=== PATIENT | female | born 1995 | race Caucasian/White ===

== ENCOUNTER 2017-06-21 11:53 | Emergency (ER) | payer BC, OTHER ==
[~2017-06-21] VITALS: Ht 157.5 cm; Wt 65.0 kg
[~2017-06-21 11:53] MED LIST: PREN1TAB62 PO
[2017-06-21 11:54] VITALS: Ht 157.5 cm; Wt 65.0 kg
--- NOTE | 2017-06-21 12:17 | ERD ---
ER Documentation Chief Complaint Date/Time DATE: 06/21/17 TIME: 12:16 Chief Complaint 15weeks with ap x days HPI 21-year-old female, with last menstrual period on March 07, 2017 was A0 presents with left-sided pelvic pain on and off for the past 3 days. She states that she was seen by Dr. Scherer, 2 days ago, who is aware of her pain, she describes as cramping, on the left lower pelvic region. She states that the pain is getting worse and she has not tried anything yet. She has not had any vaginal bleeding. Denies fevers or chills. No dizziness, chest pain or shortness of breath. ROS All systems reviewed and are negative except as per history of present illness. Medications Home Meds Active Scripts Acetaminophen* (Tylophen*) 500 Mg Capsule, 1 CAP PO Q6H Y for PAIN AND OR ELEVATED TEMP, #20 CAP Prov:MARIELOS FRITZ PA-C 06/21/17 Nitrofurantoin Monohyd Macrocr* (Macrobid*) 100 Mg Capsr, 100 MG PO BID for 7 Days, CAP Prov:MARIELOS FRITZ PA-C 06/21/17 Reported Medications Vit-Iron Fumarate-FA ( Vitamin Tablet) 1 Each Tablet, 1 TAB PO DAILY, TAB 09/09/14 Allergies Allergies: Coded Allergies: No Known Allergy (Unverified , 09/09/14) PMhx/Soc Medical and Surgical Hx: pt denies Medical Hx, pt denies Surgical Hx Hx Alcohol Use: No Hx Substance Use: No Hx Tobacco Use: No Smoking Status: Smoker,current status unk Physical Exam Vitals Vital Signs Date Time Temp Pulse Resp B/P Pulse Ox O2 Delivery O2 Flow Rate FiO2 06/21/17 11:54 98.1 76 20 110/55 99 Physical Exam General: Well-developed, well-nourished. The patient appears in no acute distress. HEENT: Head is normocephalic, atraumatic. No scleral icterus. Neck: Supple. Nontender. Lungs: Clear to auscultation. Normal air movement. Heart: Regular rate and rhythm. S1 and S2 are normal. No murmurs, gallops, or rubs. Abdomen: Soft, tender to palpation the left lower pelvic region, nondistended. Bowel sounds are normoactive. Extremities: No clubbing or cyanosis. Normal pulses. Moving extremities x 4. No weakness. Neurologic: Alert and oriented 3. No focal deficits. Skin: Normal turgor. No rash or lesions. Result Diagram: 06/21/17 1228 06/21/17 1228 Results 24 hrs Laboratory Tests Test 06/21/17 12:25 06/21/17 12:28 Urine Color YELLOW Urine Clarity SLIGHTLY CLOUDY Urine pH 6.0 Urine Specific [place] 1.017 Urine Ketones NEGATIVEmg/dL Urine Nitrite NEGATIVEmg/dL Urine Bilirubin NEGATIVEmg/dL Urine Urobilinogen NEGATIVEmg/dL Urine Leukocyte Esterase 1+Joselin/ul Urine Microscopic RBC 0/HPF Urine Microscopic WBC 2/HPF Urine Squamous Epithelial Cells FEW/HPF Urine Bacteria FEW/HPF Urine Hemoglobin NEGATIVEmg/dL Urine Glucose NEGATIVEmg/dL Urine Total Protein NEGATIVEmg/dl White Blood Count 5.310^3/ul Red Blood Count 3.9510^6/ul Hemoglobin 12.7g/dl Hematocrit 34.9% Mean Corpuscular Volume 88.4fl Mean Corpuscular Hemoglobin 32.2pg Mean Corpuscular Hemoglobin Concent 36.4g/dl Red Cell Distribution Width 12.0% Platelet Count 18006^3/UL Mean Platelet Volume 10.8fl Neutrophils % 66.1% Lymphocytes % 24.0% Monocytes % 7.6% Eosinophils % 1.3% Basophils % 0.4% Nucleated Red Blood Cells % 0.0/100WBC Neutrophils # 3.510^3/ul Lymphocytes # 1.310^3/ul Monocytes # 0.410^3/ul Eosinophils # 0.110^3/ul Basophils # 0.010^3/ul Nucleated Red Blood Cells # 0.010^3/ul Sodium Level 140mmol/L Potassium Level 3.9mmol/L Chloride Level 105mmol/L Carbon Dioxide Level 20mmol/L Anion Gap 19 Blood Urea Nitrogen 5mg/dl Creatinine 0.47mg/dl Glucose Level 83mg/dl Calcium Level 9.4mg/dl Total Bilirubin 0.3mg/dl Direct Bilirubin 0.00mg/dl Indirect Bilirubin 0.3mg/dl Aspartate Amino Transf (AST/SGOT) 19IU/L Alanine Aminotransferase (ALT/SGPT) 22IU/L Alkaline Phosphatase 68IU/L Total Protein 7.2g/dl Albumin 4.1g/dl Globulin 3.10g/dl Albumin/Globulin Ratio 1.32 Current Medications Medications (Trade) Dose Ordered Sig/[place] Route PRN Reason Start Time Stop Time Status Last Admin Dose Admin Acetaminophen (Tylenol Tab) 650 mg ONCE ONCE PO 06/21/17 12:30 06/21/17 12:31 DC 06/21/17 12:25 Patient: KEYON GAGNON : 1995 Age: 21 Sex: F MR #: [id number] DOS: 06/21/17 1213 Ordering MD: MARIELOS FRITZ PA-C Location: [facility] Room/Bed: PROCEDURE: US OB. CLINICAL INDICATION: Pelvic pain TECHNIQUE: Multiple sonographic images of the pelvis and gravid uterus were obtained. The images were reviewed on a PACS workstation. COMPARISON: No prior studies are available for comparison. FINDINGS: There is a single viable intrauterine gestation. Cardiac activity is present with 150 beats per minute. There is a variable presentation. The placenta is posterior. There is no evidence for an abruption or placenta previa. Measurements were made in order to determine age. The results are as follows: BPD = 2.7 cm HC = 9.6 cm AC = 8.4 cm FL = 1.4 cm Estimated gestational age of approximately 14 weeks and 4 days based on ultrasound measurements. Clinical age: 15 weeks and 1 day. The estimated date of delivery is 12/16/2017, based on ultrasound measurements. The EFW = 97 g, 6.6%, based on LMP age. The ovaries are normal in size and echogenicity. The right ovary measures 2.8 x 1.3 x 2.1 cm. The left ovary measures 3.7 x 1.8 x 2.6 cm. RPTAT: AA IMPRESSION: Single viable intrauterine gestation of approximately 14 weeks and 4 days based on ultrasound measurements. Normal bilateral ovaries. .Porfirio Castillo MD, Date Time Electronically viewed and signed by .Porifrio Castillo MD, on 06/21/2017 12: 54 .S/ CC: MARIELOS FRITZ PA-C DIAGNOSTIC IMAGING REPORT Patient: KEYON GAGNON : 1995 Age: 21 Sex: F MR #: [id number] DOS: 06/21/17 1311 Ordering MD: MARIELOS FRITZ PA-C Location: [facility] Room/Bed: PROCEDURE: Renal Ultrasound CLINICAL INDICATION: Left-sided flank pain. TECHNIQUE: Evaluation of the kidneys and bladder was performed as well with kay scale and color and Doppler evaluation using a curved array transducer. The images were reviewed on a high-resolution PACS workstation. COMPARISON: No prior studies are available for comparison. FINDINGS: The kidneys are well visualized. No renal masses or calcifications are seen. There is no hydronephrosis. The right kidney measures 9.8 cm in length. The left kidney measures 10.1 cm in length. No perinephric fluid collection is seen. The bladder is within normal limits. IMPRESSION: 1. Unremarkable renal ultrasound. RPTAT: KK .Josue Lezama MD, MD Date Time Electronically viewed and signed by .Josue Lezama MD, MD on 2016 13:37 .B/ CC: MARIELOS FRITZ PA-C Procedures/MDM ED course: Patient was given Tylenol 650 mg for pain. Medical decision making: This is a 21-year-old female is 2 presenting with left-sided pelvic pain, presenting in her second trimester with a single living IUP at 14 weeks and 4 days. Positive heart tones seen today. Adnexal masses, no evidence of ectopic gestation. Urinalysis shows 1+ leukocyte esterase, patient will be treated for asymptomatic bacteriuria given that she is . She will be given Tylenol for pain as well as Macrobid, and is to follow-up with her OB was Dr. Guillen in approximately 3-4 days. Patient's pain did radiate to the back as well as in the pelvic region, renal ultrasound does not show evidence of hydronephrosis or any kidney stones, suspicion for obstructive ureteral stone is low. Labs are unremarkable, she does show mild dehydration, however patient is not actively vomiting, no evidence of hyperemesis gravidarum or hypokalemia to consider admission at this time. Patient will be given copies of all lab work and ultrasound, to be followed with her OB. Departure Diagnosis: Primary Impression: Second trimester Additional Impression: Pelvic pain Condition: Good MARIELOS FRITZ PA-C Jun 21, 2017 12:17
[2017-06-21] MEDS ORDERED: ACETAMINOPHEN 325 MG TAB PO ONE (12:30)
[2017-06-21 12:51] LABS: BASOPHILS % 0.4 % (0.0-2.0); EOSINOPHILS # 0.1 10^3/ul (0.0-0.5); EOSINOPHILS % 1.3 % (0.0-7.0); HEMATOCRIT 34.9 % (37.0-47.0); HEMOGLOBIN 12.7 g/dl (12.0-16.0); LYMPHOCYTES # 1.3 10^3/ul (0.8-2.9); MEAN CORPUSCULAR HEMOGLOBIN 32.2 pg (29.0-33.0); MEAN CORPUSCULAR HGB CONC 36.4 g/dl (32.0-37.0); MEAN CORPUSCULAR VOLUME 88.4 fl (82.0-101.0); MEAN PLATELET VOLUME 10.8 fl (7.4-10.4); MONOCYTE # 0.4 10^3/ul (0.3-0.9); MONOCYTES % 7.6 % (0.0-11.0); NEUTROPHIL # 3.5 10^3/ul (1.6-7.5); NEUTROPHILS % 66.1 % (39.0-77.0); PLATELET COUNT 166 10^3/UL (140-415); RED BLOOD COUNT 3.95 10^6/ul (4.20-5.40); WHITE BLOOD COUNT 5.3 10^3/ul (4.8-10.8)
--- NOTE | 2017-06-21 12:54 | RADRPT ---
PROCEDURE: US OB. CLINICAL INDICATION: Pelvic pain TECHNIQUE: Multiple sonographic images of the pelvis and gravid uterus were obtained. The images were reviewed on a PACS workstation. COMPARISON: No prior studies are available for comparison. FINDINGS: There is a single viable intrauterine gestation. Cardiac activity is present with 150 beats per min atka. There is a variable presentation. The placenta is posterior. There is no evidence for an abruption or placenta previa. Measurements were made in order to determine age. The results are as follows: BPD =2.7 cm HC =9.6 cm AC =8.4 cm FL =1.4 cm Estimated gestational age of approximately 14 weeks and 4 days based on ultrasound measurements. Clinical age: 15 weeks and 1 day. The estimated date of delivery is 12/16/2017, based on ultrasound measurements. The EFW = 97 g, 6.6%, based on LMP age. The ovaries are normal in size and echogenicity. The right ovary measures 2.8 x 1.3 x 2.1 cm. The left ovary measures 3.7 x 1.8 x 2.6 cm. RPTAT: AA IMPRESSION: Single viable intrauterine gestation of approximately 14 weeks and 4 days based on ultrasound measu rements. Normal bilateral ovaries. .Porfirio Castillo MD, Date Time Electronically viewed and signed by .Porfirio Castillo MD, MD on 06/21/2017 12:54 .S/
[2017-06-21 13:05] LABS: ALBUMIN 4.1 g/dl (3.3-4.9); ALBUMIN/GLOBULIN RATIO 1.32; BILIRUBIN,INDIRECT 0.3 mg/dl (0-1.1); BILIRUBIN,TOTAL 0.3 mg/dl (0.2-1.3); CALCIUM 9.4 mg/dl (8.4-10.2); CREATININE 0.47 mg/dl (0.44-1.00); POTASSIUM 3.9 mmol/L (3.5-5.1); TOTAL PROTEIN 7.2 g/dl (6.1-8.1)
[2017-06-21 13:07] LABS: UR RBC 0 /HPF (0-5); UR SQUAMOUS EPITHELIAL CELL FEW /HPF (FEW)
[2017-06-21 13:12] LABS: ADD UMIC YES; UR ASCORBIC ACID NEGATIVE (NEGATIVE); UR BACTERIA FEW /HPF (NONE SEEN); UR BILIRUBIN (Dip) NEGATIVE (NEGATIVE); UR BLOOD (Dip) NEGATIVE (NEGATIVE); UR CLARITY SLIGHTLY CLOUDY (CLEAR); UR COLOR YELLOW (YELLOW); UR GLUCOSE (Dip) NEGATIVE (NEGATIVE); UR KETONES (Dip) NEGATIVE (NEGATIVE); UR LEUKOCYTE ESTERASE (Dip) 1+ Leu/ul (NEGATIVE); UR NITRITE (Dip) NEGATIVE (NEGATIVE); UR SPECIFIC GRAVITY (Dip) 1.017 (1.003-1.030); UR TOTAL PROTEIN (Dip) NEGATIVE (NEGATIVE); UR UROBILINOGEN (Dip) NEGATIVE (NEGATIVE)
--- NOTE | 2017-06-21 13:38 | RADRPT ---
PROCEDURE: Renal Ultrasound CLINICAL INDICATION: Left-sided flank pain. TECHNIQUE: Evaluation of the kidneys and bladder was performed as well with kay scale and color and Doppler evaluation using a curved array transducer. The images were reviewed on a high-resoluti on PACS workstation. COMPARISON: No prior studies are available for comparison. FINDINGS: The kidneys are well visualized. No renal masses or calcifications are seen. There is no hydronephr osis. The right kidney measures 9.8 cm in length. The left kidney measures 10.1 cm in length. No perinephric fluid collection is seen. The bladder is within normal limits. IMPRESSION: 1. Unremarkable renal ultrasound. RPTAT: KK .Josue Lezama MD, MD Date Time Electronically viewed and signed by .Josue Lezama MD, MD on 06/21/2017 13:37 .B/
[2017-06-21] MEDS ORDERED: NITR-58 PO (14:00)
[2017-06-21] MEDS ORDERED: ACET500C5 PO (14:00)
== END 2017-06-21 14:09 | disposition home or self-care (01) ==
LOC: FTE 11:53
DX: O26.892 Other specified pregnancy related conditions, second trimester (principal); R10.2 Pelvic and perineal pain; O99.332 Smoking (tobacco) complicating pregnancy, second trimester; F17.210 Nicotine dependence, cigarettes, uncomplicated; Z3A.14 14 weeks gestation of pregnancy
CPT/HCPCS: 76775; 76805; 80053; 81001; 84702; 85025; 86900; 86901; Z7610; 36415

== ENCOUNTER 2017-09-27 17:35 | Outpatient (CLI) | payer OTHER ==
[~2017-09-27] VITALS: Ht 160 cm; Wt 76.6 kg
[~2017-09-27 17:35] MED LIST changes: +ACET500C5 PO; +NITR-58 PO
[2017-09-27] MEDS ORDERED: LACTATED RINGER'S 1,000 ML IV SCH ×2 (18:58→21:30)
[2017-09-27 19:05] VITALS: Ht 160 cm; Wt 76.6 kg
[2017-09-27 19:06] VITALS: BP 106/58; PULSE 103; RESP 18
[2017-09-27 19:25] LABS: BASOPHILS % 0.5 % (0.0-2.0); EOSINOPHILS # 0.1 10^3/ul (0.0-0.5); HEMATOCRIT 32.1 % (37.0-47.0); HEMOGLOBIN 11.2 g/dl (12.0-16.0); LYMPHOCYTES # 1.6 10^3/ul (0.8-2.9); LYMPHOCYTES % 19.9 % (15.0-51.0); MEAN CORPUSCULAR HEMOGLOBIN 31.7 pg (29.0-33.0); MEAN CORPUSCULAR HGB CONC 34.9 g/dl (32.0-37.0); MEAN CORPUSCULAR VOLUME 90.9 fl (82.0-101.0); MEAN PLATELET VOLUME 10.2 fl (7.4-10.4); MONOCYTE # 0.7 10^3/ul (0.3-0.9); MONOCYTES % 8.1 % (0.0-11.0); NEUTROPHIL # 5.5 10^3/ul (1.6-7.5); NEUTROPHILS % 68.9 % (39.0-77.0); PLATELET COUNT 176 10^3/UL (140-415); RED BLOOD COUNT 3.53 10^6/ul (4.20-5.40); RED CELL DISTRIBUTION WIDTH 12.1 % (11.5-14.5)
[2017-09-27 19:44] LABS: ALBUMIN 3.2 g/dl (3.3-4.9); ALBUMIN/GLOBULIN RATIO 1.06; BILIRUBIN,INDIRECT 0.2 mg/dl (0-1.1); BILIRUBIN,TOTAL 0.2 mg/dl (0.2-1.3); CALCIUM 8.4 mg/dl (8.4-10.2); CREATININE 0.44 mg/dl (0.44-1.00); POTASSIUM 3.8 mmol/L (3.5-5.1); TOTAL PROTEIN 6.2 g/dl (6.1-8.1)
[2017-09-27 20:26] LABS: ADD UMIC NO; UR ASCORBIC ACID NEGATIVE (NEGATIVE); UR BILIRUBIN (Dip) NEGATIVE (NEGATIVE); UR BLOOD (Dip) NEGATIVE (NEGATIVE); UR CLARITY SLIGHTLY CLOUDY (CLEAR); UR COLOR YELLOW (YELLOW); UR GLUCOSE (Dip) NEGATIVE (NEGATIVE); UR KETONES (Dip) NEGATIVE (NEGATIVE); UR LEUKOCYTE ESTERASE (Dip) NEGATIVE Leu/ul (NEGATIVE); UR NITRITE (Dip) NEGATIVE (NEGATIVE); UR RBC 0 /HPF (0-5); UR SPECIFIC GRAVITY (Dip) 1.006 (1.003-1.030); UR SQUAMOUS EPITHELIAL CELL MODERATE /HPF (FEW); UR TOTAL PROTEIN (Dip) NEGATIVE (NEGATIVE); UR UROBILINOGEN (Dip) NEGATIVE (NEGATIVE)
--- NOTE | 2017-09-27 20:33 | RADRPT ---
PROCEDURE: Ultrasound OB cervical length CLINICAL INDICATION: labor. TECHNIQUE: Sonographic evaluation to assess the cervical length was performed. Transabdominal and transvaginal imaging of the gravid uterus was performed. COMPARISON: Exam dated 07/27/2017. FINDINGS: Single live intrauterine with cardiac activity is identified with a heart rate of 132 beats per minute. There is a breech lie and a posterior, grade 2 placenta. The cervical length equals approximately 4.1 cm, within normal limits. IMPRESSION: 1. Cervical length equals 4.1 cm. 2. Single viable intrauterine gestation. RPTAT: HLBP .Doug Marin MD, MD Date Time Electronically viewed and signed by .Doug Marin MD, on 09/27/2017 20:33 .P/
[2017-09-27] MEDS ORDERED: ACETAMINOPHEN 1000MG/100ML IV 100 ML IVPB ONE (22:00)
--- NOTE | 2017-09-27 22:53 | RADRPT ---
PROCEDURE: RENAL ULTRASOUND: CLINICAL INDICATION: 22 years of age, female . Back pain . TECHNIQUE: Multiple transverse and longitudinal sonographic kay scale images of the kidneys and misty dder were obtained, supplemented with color, power, and spectral Doppler imaging. COMPARISON: Obstetrical ultrasound from the same day and renal ultrasound June 21, 2017 FINDINGS: Right kidney: Length: 10.2 cm. Appearance: Mild right hydronephrosis. Normal renal size and echogenicity. Left kidney: Length: 11.1 cm. Appearance: 0.8 cm parenchymal cyst superior pole. Otherwise, normal parenchymal echogenicity. Negat chivo for hydronephrosis. Bladder: Normal. Ureteral jets: Not evaluated. Additional comment: uterus is partially visualized. IMPRESSION: Mild right hydronephrosis may be physiologic due to . Distal ureteral obstruction cannot be excluded and clinical correlation is required. RPTAT: HCTS Physician Armando Date Time Electronically viewed and signed by Noah Taylor Physician on 09/27/2017 22:53 CS/
--- NOTE | 2017-09-28 06:21 | PN ---
Triage Information Date/Time Reason for visit: Diarrhea, increased mucus Weeks of Gestation 28 weeks and 5 days /Para Diabetes: none Hypertention: none Additional information 22-year-old with IUP at 28 weeks and 5 days presented with a complaint of increased mucus and diarrhea. She denied any leaking of fluid, vaginal bleeding or decreased movement. Denies any other complication. Objective Vital Signs Date Time Temp Pulse Resp B/P Pulse Ox O2 Delivery O2 Flow Rate FiO2 09/27/17 19:06 98.4 103 18 106/58 Room Air Heart Rate: 130's Contractions: None Exam General appearance: Alert and oriented 4. Patient appear to be in any mild distress Abdomen: Soft, gravid, fundal height consistent with gestational age. No abdominal tenderness, no CVA tenderness Speculum examination: Negative pooling. Negative nitrazine Abdomen: Negative CMP, CBC, UA negative Results/Medications Result Diagram: 09/27/17190909/[id number]/171909 Results 24 hrs Laboratory Tests Test 09/27/17 17:35 09/27/17 19:10 09/27/17 19:25 Urine Color YELLOW Urine Clarity SLIGHTLY CLOUDY A Urine pH 7.0 Urine Specific [place] 1.006 Urine Ketones NEGATIVE Urine Nitrite NEGATIVE Urine Bilirubin NEGATIVE Urine Urobilinogen NEGATIVE Urine Leukocyte Esterase NEGATIVE Urine Microscopic RBC 0 Urine Microscopic WBC 2 Urine Squamous Epithelial Cells MODERATE Urine Hemoglobin NEGATIVE Urine Glucose NEGATIVE Urine Total Protein NEGATIVE White Blood Count 8.0 # Red Blood Count 3.53 L Hemoglobin 11.2 L Hematocrit 32.1 L Mean Corpuscular Volume 90.9 Mean Corpuscular Hemoglobin 31.7 Mean Corpuscular Hemoglobin Concent 34.9 Red Cell Distribution Width 12.1 Platelet Count 176 Mean Platelet Volume 10.2 Neutrophils % 68.9 Lymphocytes % 19.9 Monocytes % 8.1 Eosinophils % 1.0 Basophils % 0.5 Nucleated Red Blood Cells % 0.0 Neutrophils # 5.5 Lymphocytes # 1.6 Monocytes # 0.7 Eosinophils # 0.1 Basophils # 0.0 Nucleated Red Blood Cells # 0.0 Sodium Level 138 Potassium Level 3.8 Chloride Level 108 Carbon Dioxide Level 21 Anion Gap 13 Blood Urea Nitrogen 4 L Creatinine 0.44 Glucose Level 90 Calcium Level 8.4 Total Bilirubin 0.2 Direct Bilirubin 0.00 Indirect Bilirubin 0.2 Aspartate Amino Transf (AST/SGOT) 15 Alanine Aminotransferase (ALT/SGPT) 20 Alkaline Phosphatase 106 Total Protein 6.2 Albumin 3.2 L Globulin 3.00 Albumin/Globulin Ratio 1.06 Fibronectin NEGATIVE Imaging Results PROCEDURE: Ultrasound OB cervical length CLINICAL INDICATION: labor. TECHNIQUE: Sonographic evaluation to assess the cervical length was performed. Transabdominal and transvaginal imaging of the gravid uterus was performed. COMPARISON: Exam dated 07/27/2017. FINDINGS: Single live intrauterine with cardiac activity is identified with a heart rate of 132 beats per minute. There is a breech lie and a posterior, grade 2 placenta. The cervical length equals approximately 4.1 cm, within normal limits. IMPRESSION: 1. Cervical length equals 4.1 cm. 2. Single viable intrauterine gestation. RPTAT: HLBP PROCEDURE: RENAL ULTRASOUND: CLINICAL INDICATION: 22 years of age, female . Back pain . TECHNIQUE: Multiple transverse and longitudinal sonographic kay scale images of the kidneys and bladder were obtained, supplemented with color, power, and spectral Doppler imaging. COMPARISON: Obstetrical ultrasound from the same day and renal ultrasound June 21, 2017 FINDINGS: Right kidney: Length: 10.2 cm. Appearance: Mild right hydronephrosis. Normal renal size and echogenicity. Left kidney: Length: 11.1 cm. Appearance: 0.8 cm parenchymal cyst superior pole. Otherwise, normal parenchymal echogenicity. Negative for hydronephrosis. Bladder: Normal. Ureteral jets: Not evaluated. Additional comment: uterus is partially visualized. IMPRESSION: Mild right hydronephrosis may be physiologic due to . Distal ureteral obstruction cannot be excluded and clinical correlation is required. RPTAT: HCTS Disposition: Discharge Assessment/Plan IUP at 28 weeks and 5 days Diarrhea Low back pain, right flank pain Musculoskeletal No evidence of labor fibronectin negative Cervix long and closed Mild right hydronephrosis, related DC home labor precautions and kick count and adequate hydration and follow -up within 2043 that I hours with her primary OB discussed Patient verbalized understanding Tylenol as needed low back pain MAAME YBARRA MD Sep 28, 2017 06:21
== END 2017-09-27 23:45 | disposition home or self-care (01) ==
LOC: OBT 17:35 → L-D 17:36 → OBT 23:45
PROVIDERS: ATTEND Obstetrics & Gynecology
DX: O26.892 Other specified pregnancy related conditions, second trimester (principal); R19.7 Diarrhea, unspecified; R09.3 Abnormal sputum; M54.5 Low back pain; M79.1 Myalgia; Z3A.28 28 weeks gestation of pregnancy
CPT/HCPCS: 36415; 76775; 76817; 80053; 81001; 82731; 85025; 96360; 96361; 96372; 96375; J0131; J7120; Z7500; 81003; G0463

== ENCOUNTER 2017-11-28 10:01 | Outpatient (CLI) | END 2017-11-28 12:30 | disposition home or self-care (01) ==

== ENCOUNTER 2017-12-04 15:00 | Inpatient (IN) | END 2017-12-07 18:40 | disposition home or self-care (01) | DRG 775 ==